=== PATIENT | female | born 1975 | race Asian ===

== ENCOUNTER 2016-05-13 14:38 | Emergency (ER) | payer SELFPAY ==
[~2016-05-13] VITALS: Ht 154.9 cm; Wt 59.0 kg
--- NOTE | 2016-05-13 15:58 | PHYS DOC ---
Past Medical History Past Medical History: No Pertinent History Past Surgical History: No Surgical History Alcohol Use: None Drug Use: None Adult General Chief Complaint Chief Complaint: CONSTIPATION HPI HPI Patient is a 41 year old who presents emergency department stating she is having generalized abdominal pain and discomfort. She states that she's been having some nausea feeling. Patient states that she has been having urinary frequency urgency or pain with urination for the last year. She states that she has some type of control type placement the prevention from being for 5 years. Patient states she has been constipated although was not able to provide the last normal bowel movement. Patient denies any fever, chills. Review of Systems Review of Systems Constitutional: Denies fever or chills [] Eyes: Denies change in visual acuity, redness, or eye pain [] HENT: Denies nasal congestion or sore throat [] Respiratory: Denies cough or shortness of breath [] Cardiovascular: No additional information not addressed in HPI [] GI: abdominal pain, nausea, denies vomiting, bloody stools or diarrhea [] : Denies dysuria or hematuria [] Musculoskeletal: Denies back pain or joint pain [] Integument: Denies rash or skin lesions [] Neurologic: Denies headache, focal weakness or sensory changes [] Current Medications Current Medications Current Medications Medications (Trade) Dose Ordered Sig/Derrek Start Time Stop Time Status Last Admin Dose Admin Cephalexin HCl (Keflex) 500 mg 1X ONCE 05/13/16 20:00 05/13/16 20:01 DC 05/13/16 19:58 500 MG Info (Do NOT chart on this entry -- for MONITORING) 1 each PRN DAILY PRN 05/13/16 18:00 05/15/16 17:59 Iohexol (Omnipaque 240 Mg/ml) 50 ml 1X ONCE 05/13/16 18:00 05/13/16 18:01 DC 05/13/16 18:00 50 ML Iohexol (Omnipaque 300 Mg/ml) 75 ml 1X ONCE 05/13/16 18:00 05/13/16 18:01 DC 05/13/16 19:06 75 ML Sodium Chloride (Iv Sodium Chloride 0.9% 1000ml Bag) 1,000 ml @ 1,000 mls/hr 1X ONCE 05/13/16 16:45 05/13/16 17:44 DC 05/13/16 16:55 1,000 MLS/HR Allergies Allergies Allergies Coded Allergies Type Severity Reaction Last Updated Verified No Known Drug Allergies 05/13/16 No Physical Exam Physical Exam Constitutional: Well developed, well nourished, no acute distress, non-toxic appearance. [] HENT: Normocephalic, atraumatic, bilateral external ears normal, oropharynx moist, no oral exudates, nose normal. [] Eyes: PERRLA, EOMI, conjunctiva normal, no discharge. [] Neck: Normal range of motion, no tenderness, supple, no stridor. [] Cardiovascular:Heart rate regular rhythm, no murmur [] Lungs & Thorax: Bilateral breath sounds clear to auscultation [] Abdomen: Bowel sounds hypoactive, soft, no tenderness, no guarding noted, no masses, no pulsatile masses. [] Skin: Warm, dry, no erythema, no rash. [] Back: No tenderness Extremities: No tenderness, no cyanosis, no clubbing, ROM intact, no edema. [] Neurologic: Alert and oriented X 3, normal motor function, normal sensory function, no focal deficits noted. [] Psychologic: Affect normal, judgement normal, mood normal. [] Current Patient Data Vital Signs Vital Signs Date Time Temp Pulse Resp B/P Pulse Ox O2 Delivery O2 Flow Rate FiO2 05/13/16 17:57 83 18 126/85 94 Room Air 05/13/16 14:59 97.5 97.5 Lab Values Laboratory Tests Test 05/13/16 16:27 05/13/16 16:57 Urine Color Yellow Urine Clarity Clear Urine pH 5.5 Urine Specific [place] 1.015 Urine Protein Negativemg/dL (NEG-TRACE) Urine Glucose (UA) Negativemg/dL (NEG) Urine Ketones (Stick) Negativemg/dL (NEG) Urine Blood Negative (NEG) Urine Nitrite Positive (NEG) Urine Bilirubin Negative (NEG) Urine Urobilinogen Dipstick 1.0mg/dL (0.2 mg/dL) Urine Leukocyte Esterase Moderate (NEG) Urine RBC 0/HPF (0-2) Urine WBC 5-10/HPF (0-4) Urine Squamous Epithelial Cells Few/LPF Urine Bacteria Many/HPF (0-FEW) Urine Mucus Slight/LPF Urine Test Negative (NEG) White Blood Count 10.9x10^3/uL (4.0-11.0) Red Blood Count 4.65x10^6/uL (3.50-5.40) Hemoglobin 14.2g/dL (12.0-15.5) Hematocrit 43.2% (36.0-47.0) Mean Corpuscular Volume 93fL (79-100) Mean Corpuscular Hemoglobin 31pg (25-35) Mean Corpuscular Hemoglobin Concent 33g/dL (31-37) Red Cell Distribution Width 13.7% (11.5-14.5) Platelet Count 282x10^3/uL (140-400) Neutrophils (%) (Auto) 81% (31-73) H Lymphocytes (%) (Auto) 13% (24-48) L Monocytes (%) (Auto) 6% (0-9) Eosinophils (%) (Auto) 0% (0-3) Basophils (%) (Auto) 1% (0-3) Neutrophils # (Auto) 8.8x10^3uL (1.8-7.7) H Lymphocytes # (Auto) 1.4x10^3/uL (1.0-4.8) Monocytes # (Auto) 0.7x10^3/uL (0.0-1.1) Eosinophils # (Auto) 0.0x10^3/uL (0.0-0.7) Basophils # (Auto) 0.1x10^3/uL (0.0-0.2) Sodium Level 145mmol/L (136-145) Potassium Level 3.6mmol/L (3.5-5.1) Chloride Level 110mmol/L (98-107) H Carbon Dioxide Level 27mmol/L (21-32) Anion Gap 8 (6-14) Blood Urea Nitrogen 11mg/dL (7-20) Creatinine 0.5mg/dL (0.6-1.0) L Estimated GFR (Cockcroft-Gault) 135.3 BUN/Creatinine Ratio 22 (6-20) H Glucose Level 94mg/dL (70-99) Calcium Level 9.0mg/dL (8.5-10.1) Total Bilirubin 0.4mg/dL (0.2-1.0) Aspartate Amino Transferase (AST) 208U/L (15-37) H Alanine Aminotransferase (ALT) 245U/L (14-59) H Alkaline Phosphatase 113U/L (46-116) Total Protein 7.5g/dL (6.4-8.2) Albumin 3.4g/dL (3.4-5.0) Albumin/Globulin Ratio 0.8 (1.0-1.7) L Amylase Level 94U/L (25-115) Lipase 119U/L (73-393) Laboratory Tests 05/13/16 16:57 Laboratory Tests 05/13/16 16:57 EKG EKG ECG: Rhythm strip: Sinus rhythm, heart rate 86 beats minute, no ectopy. As interpreted by me. [] Radiology/Procedures Radiology/Procedures [] [facility] [address] [place] [address] IMAGING REPORT Signed PATIENT: SAM ORTEGA ACCOUNT: [id number] : 1975 LOCATION: ER AGE: 41 SEX: F EXAM STATUS: REG ER ORD. PHYSICIAN: LUZ RAHMAN NP REASON: abdominal pain with constipation PROCEDURE: ABD PELV W/ ORAL & IV CONTRAST PROCEDURE CT abdomen pelvis with oral and intravenous contrast. HISTORY Abdominal pain and constipation for 5 days. TECHNIQUE After administration of oral and intravenous contrast, 75 mL Omnipaque 300, CT of the abdomen and pelvis was performed. Exposure: One or more of the following individualized dose reduction techniques were utilized for this examination: 1. Automated exposure control. 2. Adjustment of the mA and/or kV according to patient size. 3. Use of iterative reconstruction technique. COMPARISON None. FINDINGS Liver, spleen, pancreas, gallbladder, and bilateral adrenal glands are unremarkable. Bilateral kidneys enhance symmetrically. No bowel obstruction or inflammation is identified. Appendix has diameter 6 millimeters, at the upper limits of normal. No free air or free fluid is seen in the abdomen or pelvis. Urinary bladder is unremarkable. Small amount of liquid stool is seen involving the distal colon. Uterus demonstrates heterogeneous low attenuation lesion which measures about 3.1 centimeters in maximum dimension. This is nonspecific, but may represent intramural leiomyoma. IMPRESSION 1. No acute abnormality identified in the abdomen or pelvis. 2. Small amount of liquid stool in the distal colon. 3. Probable uterine leiomyoma. Electronically signed by: Fernando Davis MD (May 13, 2016 19:39:15) DICTATED and SIGNED BY: FERNANDO DAVIS MD DATE: 05/13/16 193 CC: LUZ RAHMAN [employer]; NO PCP ~ Impressions: [facility] [address] [place] [address] IMAGING REPORT Signed PATIENT: SAM ORTEGA ACCOUNT: [id number] : 1975 LOCATION: ER AGE: 41 SEX: F EXAM STATUS: REG ER ORD. PHYSICIAN: LUZ RAHMAN NP REASON: constipation 5 days B PROCEDURE: ACUTE ABDOMEN SERIES Indication: Constipation for 5 days. Technique: Upright and supine abdomen is submitted for review. No comparison is available. Findings: The lungs are clear. The heart is not enlarged. A few air-fluid levels are noted in the upright film, mildly dilated small bowel loops present. There does appear to be some colonic gas. There is no free air. Bony structures are intact. Impression: Air-fluid levels with mildly dilated small bowel loops present. Ileus is favored over obstruction. DICTATED and SIGNED BY: MIRA VELA MD DATE: 05/13/16 161 CC: ULZ RAHMAN [employer]; NO PCP ~ Course & Med Decision Making Course & Med Decision Making Pertinent Labs and Imaging studies reviewed. (See chart for details) 1630 X-ray results questionable ileus vs obstruction. Report given to Dr Trevizo who will continue with patients care. Patient was provided with information of x-ray via test grader line. Patient will be moved over to the acute side. Labs and CT and urinalysis. test pending. Patient does not appear to be in distress at this time. I assumed care of this patient per above from nurse practitioner Luz. Patient on reevaluation, is resting comfortably in the emergency department. She has had a bowel movement after receiving oral contrast, and states that she is feeling much better at this time. I reviewed the CT findings telemetry findings with patient, including her elevated liver enzymes, urinary tract infection, and CT findings. We discussed this in detail via the language line test grader. Patient received first dose of Keflex in the emergency department she tolerated without issue. To be discharged home on a 7 day course of Keflex, Pyridium, she states she is experiencing some pain with urination, to push oral fluids, and to follow-up with a primary care provider from list of clinics given to her discharge. Additional follow-up information and numbers to contact persistence of obtaining insurance also given. Importance of follow-up discussed in detail. Patient voiced understanding and agreement with this plan. As stated, she has no abdominal pain at this time after having a bowel movement in the ED. Her symptoms are consistent with ileus which is now resolved, and may be due to a underlying viral infection. We discussed concerning symptoms that would prompt return to the emergency department for additional evaluation, patient voiced understanding and agreement. Discharged home in stable condition with prescriptions and instructions as above. [] Dragon Disclaimer Dragon Disclaimer This electronic medical record was generated, in whole or in part, using a voice recognition dictation system. Departure Impression: Primary Impression: Constipation Disposition: HOME, SELF-CARE Condition: IMPROVED Referrals: NO PCP (PCP) Scripts Phenazopyridine Hcl (Pyridium)200 Mg [id number] Mg PO TID PRN PAIN #9 TAB One tablet by mouth up to 3 times daily as needed for pain with urination. Prov:MARV TREVIZO DO 05/13/16 Cephalexin (Keflex)500 Mg Capsule1 Cap PO BID #14 CAP One tablet by mouth twice daily for 7 days to treat infection Prov:MARV TREVIZO DO 05/13/16 Departure Departure Impression: Primary Impression: Constipation Disposition: HOME, SELF-CARE Condition: IMPROVED Referrals: NO PCP (PCP) Scripts Phenazopyridine Hcl (Pyridium)200 Mg [id number] Mg PO TID PRN PAIN #9 TAB One tablet by mouth up to 3 times daily as needed for pain with urination. Prov:MARV TREVIZO DO 05/13/16 Cephalexin (Keflex)500 Mg Capsule1 Cap PO BID #14 CAP One tablet by mouth twice daily for 7 days to treat infection Prov:MARV TREVIZO DO 05/13/16 LUZ RAHMAN NP May 13, 2016 15:58 MARV TREVIZO DO May 13, 2016 21:16
--- NOTE | 2016-05-13 16:17 | RAD ---
Indication: Constipation for 5 days. Technique: Upright and supine abdomen is submitted for review. No comparison is available. Findings: The lungs are clear. The heart is not enlarged. A few air-fluid levels are noted in the upright film, mildly dilated small bowel loops present. There does appear to be some colonic gas. There is no free air. Bony structures are intact. Impression: Air-fluid levels with mildly dilated small bowel loops present. Ileus is favored over obstruction.
[2016-05-13 16:36] LABS: BILIRUBIN,URINE NEGATIVE (NEG); GLUCOSE,URINE NEGATIVE (NEG); NITRITE,URINE POSITIVE (NEG); PH,URINE 5.5; PROTEIN,URINE NEGATIVE (NEG-TRACE)
[2016-05-13] MEDS ORDERED: IV NORMAL SALINE 1000ML BAG 1,000 ML IV ONE (16:45)
[2016-05-13 17:04] LABS: BACTERIA,URINE MANY /HPF (0-FEW); RBC,URINE 0 /HPF (0-2); SQUAMOUS EPITHELIAL CELL,UR FEW /LPF
[2016-05-13 17:08] LABS: BASO # 0.1 x10^3/uL (0.0-0.2); BASO % 1 % (0-3); EOS % 0 % (0-3); HEMATOCRIT 43.2 % (36.0-47.0); HEMOGLOBIN 14.2 g/dL (12.0-15.5); LYMPH # 1.4 x10^3/uL (1.0-4.8); LYMPH % 13 % (24-48); MEAN CORPUSCULAR HEMOGLOBIN 31 pg (25-35); MEAN CORPUSCULAR HGB CONC 33 g/dL (31-37); MEAN CORPUSCULAR VOLUME 93 fL (79-100); MONO % 6 % (0-9); NEUT % 81 % (31-73); PLATELET COUNT 282 x10^3/uL (140-400); RED BLOOD COUNT 4.65 x10^6/uL (3.50-5.40); RED CELL DISTRIBUTION WIDTH 13.7 % (11.5-14.5); WHITE BLOOD COUNT 10.9 x10^3/uL (4.0-11.0)
[2016-05-13 17:12] LABS: NEG OBC UR NEG; POS OBC UR POS
[2016-05-13 17:21] LABS: CREATININE 0.5 mg/dL (0.6-1.0); GFR 135.3; POTASSIUM 3.6 mmol/L (3.5-5.1)
[2016-05-13 17:23] LABS: ALBUMIN 3.4 g/dL (3.4-5.0); ALBUMIN/GLOBULIN RATIO 0.8 (1.0-1.7); TOTAL BILIRUBIN 0.4 mg/dL (0.2-1.0); TOTAL PROTEIN 7.5 g/dL (6.4-8.2)
[2016-05-13] MEDS ORDERED: IOHEXOL 240 MG/ML 50ML VIAL. PO ONE (18:00)
[2016-05-13] MEDS ORDERED: IOHEXOL 300 MG/ML 75 ML VIAL IV ONE (18:00)
[2016-05-13] MEDS ORDERED: CONTRAST GIVEN MC PRN (18:00)
--- NOTE | 2016-05-13 19:40 | RAD ---
PROCEDURE CT abdomen pelvis with oral and intravenous contrast. HISTORY Abdominal pain and constipation for 5 days. TECHNIQUE After administration of oral and intravenous contrast, 75 mL Omnipaque 300, CT of the abdomen and pelvis was performed. Exposure: One or more of the following individualized dose reduction techniques were utilized for this examination: 1. Automated exposure control. 2. Adjustment of the mA and/or kV according to patient size. 3. Use of iterative reconstruction technique. COMPARISON None. FINDINGS Liver, spleen, pancreas, gallbladder, and bilateral adrenal glands are unremarkable. Bilateral kidneys enhance symmetrically. No bowel obstruction or inflammation is identified. Appendix has diameter 6 millimeters, at the upper limits of normal. No free air or free fluid is seen in the abdomen or pelvis. Urinary bladder is unremarkable. Small amount of liquid stool is seen involving the distal colon. Uterus demonstrates heterogeneous low attenuation lesion which measures about 3.1 centimeters in maximum dimension. This is nonspecific, but may represent intramural leiomyoma. IMPRESSION 1. No acute abnormality identified in the abdomen or pelvis. 2. Small amount of liquid stool in the distal colon. 3. Probable uterine leiomyoma. Electronically signed by: Fernando Zuluaga MD (May 13, 2016 19:39:15)
[2016-05-13] MEDS ORDERED: CEPHALEXIN 250 MG CAPSULE PO ONE (20:00)
[2016-05-13] MEDS ORDERED: CEPH-264 PO (21:06)
[2016-05-13] MEDS ORDERED: PHEN-318 PO (21:06)
[2016-05-13 21:20] VITALS: BP 115/70
== END 2016-05-13 21:24 | disposition home or self-care (01) ==
LOC: ER 14:38
DX: K59.00 Constipation, unspecified (principal); R10.84 Generalized abdominal pain; R11.0 Nausea
CPT/HCPCS: 36415; 74022; 74177; 80053; 81001; 81025; 82150; 83690; 85027; 87086; 96360; 96361; 99285; J7030; Q9966; Q9967

== ENCOUNTER 2021-03-05 19:22 | Emergency (ER) | payer MEDICAID ==
[~2021-03-05 19:22] MED LIST: CEPH-264 PO; PHEN-318 PO
== END 2021-03-05 22:00 | disposition left against medical advice (07) ==
LOC: ER 19:22
DX: K59.00 Constipation, unspecified (principal); Z53.21 Procedure and treatment not carried out due to patient leaving prior to being seen by health care provider